=== PATIENT | male | born 1960 | race Caucasian/White ===

== ENCOUNTER 2019-10-05 18:03 | Inpatient (IN) | payer OTHER ==
[~2019-10-05] VITALS: Ht 162.6 cm; Wt 63.6 kg
[2019-10-05 18:37] VITALS: BP 125/80
[2019-10-05 18:51] LABS: BASOPHILS 1.2 % (0-2); EOSINOPHILS 1.3 % (0-7); HEMATOCRIT 41.9 % (42.0-54.0); IMMATURE GRANULOCYTES 0.9 % (0-5); LYMPHOCYTES 12.1 % (15-50); MCH 31.7 pg (26.0-34.0); MCHC 33.4 g/dL (31.0-37.0); MCV 94.8 fL (80.0-100.0); MEAN PLATELET VOLUME 9.6 fL (7.4-10.4); MONOCYTES 6.7 % (2-11); NEUTROPHILS 77.8 % (40-80); PLATELET COUNT 216 10x3/uL (130-400); RBC 4.42 10x6/uL (4.20-6.10); RDW 12.9 % (11.5-14.5)
--- NOTE | 2019-10-05 19:00 | NUR ---
REPORT TO ASHLEIGH BASHIR
[2019-10-05 19:01] VITALS: BP 139/86
[2019-10-05 19:05] LABS: APTT 28.1 SECONDS (22.8-39.4); INR 0.97 (0.85-1.17); PROTIME 12.8 SECONDS (11.6-15.0)
--- NOTE | 2019-10-05 19:10 | NUR ---
URINE SENT TO THE LAB
[2019-10-05 19:13] LABS: ANION GAP 11.8 mmol/L (8-16); CALCIUM 8.9 mg/dL (8.5-10.1); CREATININE - SERUM 1.2 mg/dL (0.6-1.3); POTASSIUM - SERUM 3.8 mmol/L (3.5-5.1)
[2019-10-05 19:14] LABS: ALBUMIN 3.7 g/dL (3.4-5.0); BILIRUBIN - TOTAL 0.44 mg/dL (0.2-1.3)
[2019-10-05 19:39] LABS: BILIRUBIN NEGATIVE (NEGATIVE); GLUCOSE NEGATIVE (NEGATIVE); KETONE NEGATIVE (NEGATIVE); NITRITE NEGATIVE (NEGATIVE); UROBILINOGEN NORMAL (NORMAL)
[2019-10-05 19:41] LABS: RED CELLS - URINE 0-5 /hpf (0-5); WHITE CELLS - URINE OCC /hpf (NEGATIVE)
[2019-10-05 20:30] VITALS: BP 123/70
--- NOTE | 2019-10-05 20:30 | NUR ---
RECIEVED TO ROOM ALERT RIGHT ARM IN SPLINT, LACERATION NOTED TO LEFT CHEEK, C COLLAR IN PLACE, HAS LACERATIONS NOTED TO LEFT FOREARM AND RED ESCORATED AREAS NOTED TO LEFT HIP AND SIDE, BRUSING ALSO NOTED TO FORHEAD, AT BEDSIDE BOTH SPEAK VERY LITTLE BERMUDIAN, HS NOTIFIED FOR MAINSPRING STRIP INSPECTOR PHONE, ABLE TO ORIENTIATE TO ROOM AND USE CALL LIGHT
--- NOTE | 2019-10-05 22:00 | NUR ---
CHANGE CONTROL SPECIALIST PHONE CONNECTED AND DISCUSSED PLAN OF CARE AND PLAN FOR SURGERY IN AM CONCENTS REVIEWED AND SIGNED AFTER BOTH PT AND VERBALIZED UNDERSTANDING, QUESTIONS ANSWERED VIA CHANGE CONTROL SPECIALIST
[2019-10-06] VITALS (9 sets, daily range): BP systolic 94–126; BP diastolic 49–74; Ht 162.6 cm; Wt 63.6 kg
[2019-10-06 01:37] LABS: CREATINE KINASE 663 UL (21-232); TROPONIN-I 0.028 ng/mL (0.000-0.060)
[2019-10-06 06:30] LABS: BASOPHILS 0.5 % (0-2); EOSINOPHILS 0.1 % (0-7); HEMATOCRIT 39.6 % (42.0-54.0); HEMOGLOBIN 13.1 g/dL (13.5-17.5); IMMATURE GRANULOCYTES 0.3 % (0-5); LYMPHOCYTES 18.6 % (15-50); MCH 31.3 pg (26.0-34.0); MCHC 33.1 g/dL (31.0-37.0); MCV 94.7 fL (80.0-100.0); MEAN PLATELET VOLUME 10.1 fL (7.4-10.4); MONOCYTES 7.4 % (2-11); NEUTROPHILS 73.1 % (40-80); PLATELET COUNT 217 10x3/uL (130-400); RBC 4.18 10x6/uL (4.20-6.10); RDW 13.1 % (11.5-14.5)
[2019-10-06 07:02] LABS: ALBUMIN 3.3 g/dL (3.4-5.0); ALKALINE PHOSPHATASE 60 U/L (30-120); ALT (SGPT) 46 U/L (10-68); CALC OSMOLALITY 282 mosm/kg (275-300); CALCIUM 8.2 mg/dL (8.5-10.1); CARBON DIOXIDE 23.5 mmol/L (21.0-32.0); CHLORIDE - SERUM 108 mmol/L (98-107); CKMB 11.4 U/L (0.0-3.6); CREATINE KINASE 620 UL (21-232); CREATININE - SERUM 0.9 mg/dL (0.6-1.3); GLUCOSE 105 mg/dL (74-106); POTASSIUM - SERUM 4.3 mmol/L (3.5-5.1); SODIUM 140 mmol/L (136-145); TROPONIN-I 0.022 ng/mL (0.000-0.060); UREA NITROGEN 25 mg/dL (7-18); eGFR NON AFRICAN AMERICAN > 90 mL/min (90-120)
--- NOTE | 2019-10-06 07:30 | NUR ---
TO SURG PER BED. TO GO WITH PATIENT TO PREOP HOLDING.
--- NOTE | 2019-10-06 09:55 | NUR ---
0955 PATIENT AROUSABLE, OPA DISCONTINUED, MAINTAINING PATENT AIRWAY
--- NOTE | 2019-10-06 12:15 | NUR ---
PATIENT BACK TO ROOM. VS STABLE IV INTACT. STATES NO PAIN AT THIS TIME. FAMILY AT BEDSIDE. ELEVATED ARM ON PILLOW AND PLACED ICE PACK. BSCDS ON AND WORKING. CALL LIGHT WITHIN REACH.
--- NOTE | 2019-10-06 13:00 | NUR ---
PATIENT IN BED WITH IV INTACT. NO COMPLAINTS OR SIGNS OF DISTRESS. FAMILY AT BEDSIDE. VS STABLE. CALL LIGHT WITHIN REACH.
--- NOTE | 2019-10-06 14:45 | NUR ---
PATIENT IN BED WITH EYES CLOSED. VS STABLE. IV INTACT. CALL LIGHT WITHIN REACH. FAMILY AT BEDSIDE.
--- NOTE | 2019-10-06 16:45 | NUR ---
PATIENT IN BED WITH IV INTACT. VS MONITOR UNPLUGGED. UNABLE TO RECORD POST OP VS. VS HAVE BEEN STABLE THROUGH OUT DAY. PATIENT STILL HAS NO COMPLAINTS OF PAIN. IV INTACT. CALL LIGHT WITHIN REACH.
--- NOTE | 2019-10-06 20:00 | NUR ---
ALERT RESTING IN BED DENIES PAIN OR NEEDS AT THSI TIME SARBJIT WRAP DRESSING INTACT TO RIGHT ARM, SEE SHIFT ASSESSMENT, CALL LIGHT IN REACH
[2019-10-07 04:00] VITALS: BP 110/64
[2019-10-07 05:45] LABS: BASOPHILS 0.2 % (0-2); EOSINOPHILS 0.1 % (0-7); HEMATOCRIT 36.9 % (42.0-54.0); HEMOGLOBIN 12.3 g/dL (13.5-17.5); IMMATURE GRANULOCYTES 0.1 % (0-5); LYMPHOCYTES 13.5 % (15-50); MCH 31.5 pg (26.0-34.0); MCHC 33.3 g/dL (31.0-37.0); MCV 94.6 fL (80.0-100.0); MEAN PLATELET VOLUME 9.9 fL (7.4-10.4); MONOCYTES 10.8 % (2-11); NEUTROPHILS 75.3 % (40-80); PLATELET COUNT 208 10x3/uL (130-400); RDW 13.1 % (11.5-14.5); WBC 10.8 10x3/uL (4.8-10.8)
[2019-10-07 06:15] LABS: ALBUMIN 3.1 g/dL (3.4-5.0); ALKALINE PHOSPHATASE 55 U/L (30-120); ALT (SGPT) 38 U/L (10-68); BILIRUBIN - TOTAL 1.05 mg/dL (0.2-1.3); CALC OSMOLALITY 277 mosm/kg (275-300); CALCIUM 8.1 mg/dL (8.5-10.1); CARBON DIOXIDE 25.5 mmol/L (21.0-32.0); CHLORIDE - SERUM 106 mmol/L (98-107); CREATININE - SERUM 0.9 mg/dL (0.6-1.3); GLUCOSE 110 mg/dL (74-106); MAGNESIUM - SERUM 2.2 mg/dL (1.8-2.4); SODIUM 137 mmol/L (136-145); UREA NITROGEN 21 mg/dL (7-18); eGFR NON AFRICAN AMERICAN > 90 mL/min (90-120)
[2019-10-07 07:25] VITALS: BP 115/75
--- NOTE | 2019-10-07 07:37 | MORECARE ---
CASE MANAGEMENT DISCHARGE SUMMARY PATIENT: REMEDIOS OSPINA UNIT: [id number] ADM DATE: 10/05/19 AGE: 59 : 62 SEX: M ROOM/BED: D.1212 AUTHOR: MALDONADO WILEY PHYSICIAN: REFERRING PHYSICIAN: PHAN MARTINS MD DATE OF SERVICE: 10/07/19 Discharge Plan Patient Name: REMEDIOS OSPINA [facility] [facility] 1960 Planned Disposition: Home or Self Care Anticipated Discharge Date: Discharge Date: Expected LOS: Initial Reviewer: [email or web address] Initial Review Date: 10/05/2019 Generated: 10/07/19 8:36 am DCPIA - Discharge Planning Initial Assessment Updated by [email or web address]: Nery Reyes on 10/07/19 7:34 am * Is the patient Alert and Oriented? Yes * How many steps to enter\exit or inside your home? * PCP none * Pharmacy [facility] * Preadmission Environment Home with Family * ADLs Independent * Equipment None * List name and contact numbers for known caregivers / representatives who currently or will assist patient after discharge: MANI () [phone] * Verbal permission to speak to the caregivers and representatives has been obtained from the patient. N/A * Community resources currently utilized None * Additional services required to return to the preadmission environment? No * Can the patient safely return to the preadmission environment? Yes * Has this patient been hospitalized within the prior 30 days at any hospital? No Patient Name: REMEDIOS OSPINA Page 92292 at 0737 All edits/amendments must be made on the electronic document DICTATION DATE: 10/07/19735 FREIGHT HUSTLER: ELLIE 10/07/19735 RPT#: [id number] DC DATE: STATUS: ADM IN [facility] [address] [place] [address] END OF REPORT
--- NOTE | 2019-10-07 07:44 | MORECARE ---
CASE MANAGEMENT DISCHARGE SUMMARY PATIENT: REMEDIOS OSPINA UNIT: [id number] ADM DATE: 10/05/19 AGE: 59 : 62 SEX: M ROOM/BED: D.1212 AUTHOR: SAURABHDOC PHYSICIAN: REFERRING PHYSICIAN: PHAN MARTINS MD DATE OF SERVICE: 10/07/19 Discharge Plan Patient Name: REMEDIOS OSPINA Facility: [facility]:[place] : 1960 Planned Disposition: Home or Self Care Anticipated Discharge Date: Discharge Date: Expected LOS: Initial Reviewer: [email or web address] Initial Review Date: 10/05/2019 Generated: 10/07/19 8:43 am Comments DCP- Discharge Planning Updated by [email or web address]: Nery Reyes on 10/07/19 6:[address] Patient Name: REMEDIOS OSPINA Admission Status: ER Accout number: [id number] Admission Date: 10-05-2019 : 1960 Admission Diagnosis: Attending: MANPREET Current LOS: 2 Anticipated DC Date: Planned Disposition: Home or Self Care Primary Insurance: [employer] MA[employer]ED [employer]ICA[employer] Discharge Planning Comments: CM met with patient to complete initial dc planning assessment. CM educated patient on the CM role and verbal consent given by patient to complete assessment. Patient lives at home with his where he is independent with his care. At discharge patient plans to return home and feels this is a safe discharge. CM discussed availability of home health, rehab services, and medical equipment. The did not think he needed anything and would like to go home today. Patient denied known discharge needs at this time. CM will continue to follow and will assist as needed with dc plans/needs. Android Platform Developer: Nery Reyes DCPIA - Discharge Planning Initial Assessment Updated by [email or web address]: Nery Reyes on 10/07/19 7:34 am * Is the patient Alert and Oriented? Yes * How many steps to enter\exit or inside your home? * PCP none * Pharmacy [facility] * Preadmission Environment Home with Family * ADLs Independent * Equipment None * List name and contact numbers for known caregivers / representatives who currently or will assist patient after discharge: MANI () [phone] * Verbal permission to speak to the caregivers and representatives has been obtained from the patient. N/A * Community resources currently utilized None * Additional services required to return to the preadmission environment? No * Can the patient safely return to the preadmission environment? Yes * Has this patient been hospitalized within the prior 30 days at any hospital? No Last DP export: 10/07/19 6:37 am Patient Name: REMEDIOS OSPINA Page [phone] at 0744 All edits/amendments must be made on the electronic document DICTATION DATE: 10/07/19743 CPC: ELLIE 10/07/1943 RPT#: [id number] DC DATE: STATUS: ADM IN [facility] [address] [place] [address] END OF REPORT
--- NOTE | 2019-10-07 08:15 | NUR ---
PATIENT IN BED WITH IV INTACT. NO COMPLAINTS. DENIES PAIN. VS STABLE. FAMILY AT BEDSIDE. CALL LIGHT WITHIN REACH. BSCDS ON AND WORKING.
--- NOTE | 2019-10-07 08:45 | NUR ---
PATIENT IN BED WITH IV NTACT. NO COMPLAINTS OR SIGNS OF DISTRESS. FAMILY AT BEDSIDE. CALL LIGHT WITHIN REACH.
--- NOTE | 2019-10-07 10:39 | OP ---
PATIENT NAME: REMEDIOS OSPINA MEDICAL RECORD: [id number] :62 LOCATION:D.M3 D.1212 ADMISSION DATE:10/05/19 SURGEON: THOMAS VIGIL MD DATE OF OPERATION: 10/05/2019 PREOPERATIVE DIAGNOSIS: Displaced right distal radius fracture. POSTOPERATIVE DIAGNOSIS: Displaced right distal radius fracture. PROCEDURE: Open reduction and internal fixation of displaced right distal radius fracture. SURGEON: Thomas Vigil MD ANESTHESIA: General with a preoperative interscalene block. INTRAOPERATIVE COMPLICATIONS: None. SUMMARY OF PATHOLOGIC FINDINGS: The patient had a very displaced fracture that reduced nicely with closed reduction and then was plated as it was unstable pattern. IMPLANTS USED: Charlie VariAx 2 system with a combination of both compression and locking screws. OPERATIVE SUMMARY IN DETAIL: After obtaining the appropriate preoperative orthopedic surgery consent as well as anesthetic consultation, evaluation, and clearance, the patient was brought to the operating room and placed on the operating table in the supine position. After adequate general laryngeal mask airway was administered, tourniquet was placed about the proximal aspect of the right upper extremity. The right upper extremity was then prepped and draped in a routine sterile fashion. The arm was elevated, exsanguinated, and the tourniquet was inflated to 250 mmHg. A routine volar approach of Pablo's was utilized, taken down to the level of the FCR, which was utilized as landmark. The dissection was then carried down to the fracture itself, gently clearing the muscle belly. Fracture was identified and it was reduced as seen under fluoroscopy on both AP and lateral planes. Plate was applied under fluoroscopic guidance. A combination of both locking and nonlocking screws was utilized for fixation of the fracture. After the fracture had been fixed in anatomical plane, both AP and lateral views were taken and submitted to radiologist for review. The wound was then irrigated and closed with 2-0 Vicryl followed by 4-0 Prolene in a running fashion. Sterile dressings were applied. Tourniquet was deflated. The patient was awakened and taken to recovery room in stable condition. All final needle and sponge counts were correct. NTS:[id number] Voice Confirmation ID: [id number] DOCUMENT ID: [id number] OPERATIVE REPORT [id number] REMEDIOS OSPINA MD, THOMAS PRESCOTT at 1039 CC: [id number] DICTATION DATE: 10/06/19 0955 COOK FISHING VESSEL: 10/06/19 1849 ADM IN [facility] [address] [place] [id number]
--- NOTE | 2019-10-07 11:59 | NUR ---
PATIENT IN BED WITH IV INTACT. NO COMPLAINTS OR SIGNS OF DISTRESS. FAMILY AT BEDSIDE. CALL LIGHT WITHIN REACH. WRIST WITH DRESSING CDI, ELEVATED ON PILLOW. NEUROVASCULAR CHECKS WNL.
[2019-10-07 12:06] VITALS: BP 110/70
[2019-10-07] MEDS ORDERED: HYDROCODON-ACE1 EA10 PO (16:07)
--- NOTE | 2019-10-07 16:45 | NUR ---
SPOKE WITH MARISSA ABOUT PATIENT WANTING TO BE DC'D. DOESNT WANT TO USE PLATFORM WALKER. STATED HE HAS NO PAIN WHEN GETTING UP WITH PT. MARISSA STATED SHE WOULD PUT IN THE ORDERS.
--- NOTE | 2019-10-07 17:10 | NUR ---
MAUREEN STATED OK WITH DC. WILL PUT IN ORDERS AT THIS TIME.
--- NOTE | 2019-10-07 17:29 | NUR ---
PATIENT AND RECIEVED DC INSTRUCTIONS. VERBALIZED UNDERSTANDING. STATED SHE DIDNT WANT TO USE NURSE EPIDEMIOLOGIST PHONE AT THIS TIME. STATED SHE UNDERSTOOD WHAT I TOLD HER AND WOULD HAVE HER 18 YEAR OLD READ HER ALL THE PAPER WORK. PATIENT WILL NOT USE PLATFORM WALKER. WALKS WITH NO PROBLEMS. EXPLAINED TO THAT PATIENT CAN PUT WEIGHT TOLERATED ON HIS LEG BUT NOT HIS ARM. HE HAS TO WEAR THE SLING. VERBALIZED UNDERSTANDING. EXPLAINED TO [employer] AT [facility] REQUESTED. IV REMOVED WITH CATH TIP INTACT. WAITING FOR WC FOR DC. CALLL IGHT WITHIN REACH.
--- NOTE | 2019-10-08 13:13 | MORECARE ---
CASE MANAGEMENT DISCHARGE SUMMARY PATIENT: REMEDIOS OSPINA UNIT: [id number] ADM DATE: 10/05/19 AGE: 59 : 62 SEX: M ROOM/BED: D.1212 AUTHOR: SAURABHDOC PHYSICIAN: REFERRING PHYSICIAN: PHAN MARTINS MD DATE OF SERVICE: 10/08/19 Discharge Plan Patient Name: REMEDIOS OSPINA Facility: [facility]:[place] : 1960 Planned Disposition: Home or Self Care Anticipated Discharge Date: Discharge Date: 10/07/2019 Expected LOS: Initial Reviewer: [email or web address] Initial Review Date: 10/05/2019 Generated: 10/08/19 2:13 pm DCP- Discharge Planning Updated by [email or web address]: Nery Reyes on 10/07/19 6:[address] Patient Name: REMEDIOS OSPINA Admission Status: ER Accout number: [id number] Admission Date: 10-05-2019 : 1960 Admission Diagnosis: Attending: MANPREET Current LOS: 2 Anticipated DC Date: Planned Disposition: Home or Self Care Primary Insurance: [employer] MANAGED MEDICAID Discharge Planning Comments: CM met with patient to complete initial dc planning assessment. CM educated patient on the CM role and verbal consent given by patient to complete assessment. Patient lives at home with his where he is independent with his care. At discharge patient plans to return home and feels this is a safe discharge. CM discussed availability of home health, rehab services, and medical equipment. The did not think he needed anything and would like to go home today. Patient denied known discharge needs at this time. CM will continue to follow and will assist as needed with dc plans/needs. Pan Shover: Nery Reyes DCPIA - Discharge Planning Initial Assessment Updated by [email or web address]: Nery Reyes on 10/07/19 7:34 am * Is the patient Alert and Oriented? Yes * How many steps to enter\exit or inside your home? * PCP none * Pharmacy [facility] * Preadmission Environment Home with Family * ADLs Independent * Equipment None * List name and contact numbers for known caregivers / representatives who currently or will assist patient after discharge: MANI () [phone] * Verbal permission to speak to the caregivers and representatives has been obtained from the patient. N/A * Community resources currently utilized None * Additional services required to return to the preadmission environment? No * Can the patient safely return to the preadmission environment? Yes * Has this patient been hospitalized within the prior 30 days at any hospital? No Last DP export: 10/07/19 6:44 am Patient Name: REMEDIOS OSPINA Page 23214 at 1313 All edits/amendments must be made on the electronic document DICTATION DATE: 10/08/191312 DIRECTOR SEARCH: ELLIE 10/08/191312 RPT#: [id number] DC DATE:10/07/19 STATUS: DIS IN [facility] [address] [place] [address] END OF REPORT
== END 2019-10-07 18:12 | disposition home or self-care (01) | DRG 511 ==
LOC: D.ER 18:03 → D.M3 19:16
PROVIDERS: Family Medicine; ADMIT Family Medicine; ATTEND Family Medicine
PROC: 0PSH04Z Reposition Right Radius with Internal Fixation Device, Open Approach (ICD-10-PCS; principal; 2019-10-05)
PROC: 0RSXXZZ Reposition Left Finger Phalangeal Joint, External Approach (ICD-10-PCS; 2019-10-05)
DX: S52.501A Unspecified fracture of the lower end of right radius, initial encounter for closed fracture (principal); S32.512A Fracture of superior rim of left pubis, initial encounter for closed fracture; S00.03XA Contusion of scalp, initial encounter; S63.257A Unspecified dislocation of left little finger, initial encounter; W11.XXXA Fall on and from ladder, initial encounter

== ENCOUNTER 2020-06-16 13:59 | Emergency (ER) | payer OTHER ==
[~2020-06-16] VITALS: Ht 162.6 cm; Wt 61.4 kg
[~2020-06-16 13:59] MED LIST: HYDROCODON-ACE1 EA10 PO
[2020-06-16 14:25] VITALS: BP 112/70; Ht 162.6 cm; Wt 61.4 kg
[2020-06-16] MEDS ORDERED: PERCOCET 5-3251 TAB PO (16:40)
== END 2020-06-16 17:28 | disposition home or self-care (01) ==
LOC: D.ER 13:59
DX: S92.351A Displaced fracture of fifth metatarsal bone, right foot, initial encounter for closed fracture (principal); W22.8XXA Striking against or struck by other objects, initial encounter; Y93.9 Activity, unspecified; Y92.9 Unspecified place or not applicable

== ENCOUNTER 2020-06-22 06:14 | Day surgery (SDC) | payer OTHER ==
[~2020-06-22] VITALS: Ht 170.2 cm; Wt 63.5 kg
[~2020-06-22 06:14] MED LIST changes: +PERCOCET 5-3251 TAB PO
[2020-06-22 07:53] VITALS: BP 119/75; Ht 170.2 cm; Wt 63.5 kg
--- NOTE | 2020-06-22 14:29 | NUR ---
IV DC'D WITH CATH TIP INTACT. PT ASSISTED TO GET DRESSED. DRESSING TO RLE REMAINS CDI WITH SPLINT IN PLACE. BRISK CAP REFILL TO RIGHT TOES; TOES PINK AND WARM TO TOUCH. PT ABLE TO WIGGLE DIGITS RIGHT FOOT. THEN CALLED [employer] [facility] AT [phone] AND SPOKE WITH [employer] # [id number] FOR SWEDISH INSTRUCTIONS FOR PT. ALL INSTRUCTIONS PROVIDED THROUGH [employer] WITH TIME FOR QUESTIONS FROM PT ALLOWED. PT STATES NO QUESTIONS AND VOICED UNDERSTANDING OF INSTRUCTIONS GIVEN VIA [employer]. COPY OF ALL INSTRUCTIONS AND ORIGINAL RX'S OF KEFLEX AND NORCO GIVEN TO PT'S SPOUSE.
--- NOTE | 2020-06-22 14:42 | NUR ---
DISCHARGED VIA W/C, ACCOMPANIED BY THIS NURSE, TO POV WITH SPOUSE DRIVING. ALL BELONGINGS WITH PT/SPOUSE.
--- NOTE | 2020-06-24 11:55 | OP ---
PATIENT NAME: REMEDIOS CHIRINOS MEDICAL RECORD: [id number] :62 LOCATION:[place] ADMISSION DATE: SURGEON: JOCELYN HOOK MD DATE OF OPERATION: 06/22/2020 PREOPERATIVE DIAGNOSIS: Right fifth metatarsal fracture. POSTOPERATIVE DIAGNOSIS: Right fifth metatarsal fracture. PROCEDURE PERFORMED: ORIF right fifth metatarsal. INDICATIONS FOR THE PROCEDURE: Mr. Chirinos is a 60-year-old male who injured his right foot approximately 1 week ago when he was cutting a limb. The limb fell and landed across the top of his foot. He complained of immediate pain and swelling. He was seen in the Emergency Department where x-rays showed fracture along the distal shaft of the fifth metatarsal. He was seen by orthopedics, noted to have fracture of the fifth metatarsal with significant displacement. Decision was made to proceed with surgery for operative intervention. Risks, benefits and alternatives of surgery were discussed with the patient and consent was obtained. DESCRIPTION OF THE PROCEDURE: The patient was met in the holding area where his identity and confirmation of procedure was performed. The right lower extremity was marked. He was taken to the operating room where he was placed supine on the operating table, and anesthesia was administered, tourniquet was applied to the right thigh. The right leg was prepped and draped in a sterile fashion. The patient received preoperative antibiotics and timeout was performed before initiating the case. On initiation of the case, leg was exsanguinated and the tourniquet was raised. Total tourniquet time was 40 minutes. We began with localization of the fracture under fluoroscopy and a small incision was then made over the dorsal foot. A K-wire was placed at the base of the fifth metatarsal, we advanced the K-wire to the fracture site. We attempted to advance this across the fracture, but was unsuccessful. We therefore made a separate incision laterally and we were able to dissect down to the fracture site. We were able to perform a reduction and then hold the bones reduced as the K-wire was advanced. We had considered placing a screw, but due to the bend in the wire that would not be possible. The K-wire appeared to provide adequate fixation and therefore completed our procedure. Final images were obtained that showed good alignment and fixation of the fifth metatarsal. The wound was irrigated thoroughly with saline. The incision was closed with a 4-0 nylon suture. There was significant bruising of the skin over the dorsal foot in the area of the injury. Some of this was disrupted with the manipulation as part of the surgery. The top layer of skin was debrided and the Xeroform dressing was placed over this. A Jurgan ball was placed over the pin and a sterile dressing was applied. The patient was then placed into a well-padded splint. He was turned back over to anesthesia where he was awakened, extubated, and taken to recovery room in stable condition. POSTOPERATIVE PLAN: The patient is going to return home with his family today. He needs to remain nonweightbearing on the right leg. We will plan to see him back in clinic in approximately 10 days. COMPLICATIONS: None. ANESTHESIA: General. OPERATIVE REPORT [id number] REMEDIOS CHIRINOS ESTIMATED BLOOD LOSS: 10 mL. TRANSINT:[id number] Voice Confirmation ID: [id number] DOCUMENT ID: [id number] JOCELYN HOOK MD at 1155 CC: [id number] DICTATION DATE: 06/22/20 1216 GAS MASK ASSEMBLER: 06/22/20 1234 [facility] 06/22/[id number] [place] [address]
== END 2020-06-22 14:42 | disposition home or self-care (01) ==
LOC: D.OPS 06:14
PROVIDERS: ATTEND Orthopaedic Surgery
DX: S92.351A Displaced fracture of fifth metatarsal bone, right foot, initial encounter for closed fracture (principal); X58.XXXA Exposure to other specified factors, initial encounter